=== PATIENT | female | born 1970 | race Caucasian/White ===

== ENCOUNTER 2017-04-21 15:47 | Emergency (ER) | payer MEDICARE ==
[2017-04-21 17:27] LABS: BASOPHIL 0.4 % (0-2); EOSINOPHIL 1.3 % (0-5); HGB 13.8 g/dl (12.5-16.0); LYMPHOCYTE 21.2 % (15-48); MCHC 34.5 g/dL (32.0-36.0); MONOCYTE 7.5 % (0-12); MPV 10.5 fL (6.0-9.5); NEUTROPHIL 69.6 % (41-80); PLT 244 K/uL (150-400); RDW 12.6 % (11.5-14.0); WBC 6.8 K/uL (4.0-10.5)
[2017-04-21 17:40] LABS: LACTIC ACID 3.1 mmol/L (0.5-2.2)
[2017-04-21 17:44] LABS: ALBUMIN 4.4 g/dL (3.5-5.0); BILIRUBIN - TOTAL 0.4 mg/dL (0.1-1.0); CREATININE 0.9 mg/dL (0.5-1.0); GLOBULIN (CALCULATION) 3.2 g/dL (2.2-4.2); POTASSIUM 3.7 mmol/L (3.5-5.1); TOTAL PROTEIN 7.6 g/dL (6.4-8.3)
[2017-04-21 19:00] LABS: AMPHETAMINES NEGATIVE (NEGATIVE); BARBITURATES NEGATIVE (NEGATIVE); BENZODIAZEPINES POSITIVE (NEGATIVE); COCAINE NEGATIVE (NEGATIVE); MARIJUANA (THC) NEGATIVE (NEGATIVE); METHADONE NEGATIVE (NEGATIVE); TRICYCLIC ANTIDEPRESSANT NEGATIVE (NEGATIVE)
== END 2017-04-22 02:15 | disposition home or self-care (01) ==
LOC: FER 15:47
PROVIDERS: Internal Medicine
DX: R06.4 Hyperventilation (principal); R41.0 Disorientation, unspecified; F20.9 Schizophrenia, unspecified; Z79.899 Other long term (current) drug therapy
CPT/HCPCS: 36415; 36600; 70450; 71010; 80053; 80305; 82803; 83605; 84484; 85025; 86403; 87040; 87077; 87184; 87186; 93005; 96372; J2060